=== PATIENT | female | born 1970 | race Caucasian/White ===

== ENCOUNTER 2022-09-28 13:41 | Outpatient (CLI) | payer OTHER, SELFPAY ==
--- NOTE | 2022-09-28 13:40 | CRLHL7_ITS ---
For Patients: As a result of the Cures Act, medical imaging exams and procedure reports are released immediately into your electronic medical record. You may view this report before your referring provider. If you have questions, please contact your health care provider. BILATERAL SCREENING MAMMOGRAM WITH COMPUTER-AIDED DETECTION AND TOMOSYNTHESIS TECHNIQUE: CC and MLO views were obtained. These mammographic images have been obtained using full-field digital technique. These mammographic images were interpreted with the benefit of computer-aided detection. Breast Tomosynthesis was used in this interpretation. COMPARISON FILM: 09/18/21, 05/19/20, 04/03/18. FINDINGS: There are scattered areas of fibroglandular density IMPRESSION: There is no radiographic evidence for malignancy. ASSESSMENT: BI-RADS Category 1: Negative RECOMMENDATION: Routine screening mammogram in 1 year. A lay language report of this examination will be provided to the patient. Alejo Hilliard M.D. Diagnostic Radiologist [email or web address] EHSAN/[email or web address] / be/Dictated by: Alejo Hilliard MD @ 10/01/2022 8:29:00 AM (Electronically Signed)
== END 2022-09-28 13:42 | disposition home or self-care (01) ==
PROVIDERS: PCP Family Medicine; Visit Provider Obstetrics & Gynecology
DX: Z12.31 Encounter for screening mammogram for malignant neoplasm of breast (principal)
CPT/HCPCS: 77063; 77067

== ENCOUNTER 2023-06-27 11:04 | Outpatient (CLI) | payer OTHER, SELFPAY ==
--- NOTE | 2023-06-27 11:00 | XR_ITS ---
Patient: BRAN BOOKER Facility:?[facility] Patient ID:?[id number] Site Patient ID:?[id number]. Site :?[id number] Study:?DEXA-Bone Density-06/27/2023 11:47:53 AM Ordering Physician:ALAN LOPEZ Final Report: DXA BONE MINERAL DENSITY STUDY Reason for exam: Osteoporosis. Current height (in): 63. Weight (lb): 157. Menopause age: 46. Ethnicity: . 1. Have you had a previous hip or vertebral fracture? No. 2. Have you had any fractures during your adult life which did not result from significant trauma (e.g., auto accident)? No. 3. Did either of your parents have a hip fracture? No. 4. Do you smoke? No. 5. Have you ever taken Glucocorticoids? No. 6. Do you have rheumatoid arthritis? No. 7. Do you have secondary osteoporosis? No. 8. Do you drink 3 or more alcoholic drinks per day? No. 9. Are you being treated for osteoporosis? No. 10. Have you ever taken any of the following medications: Actonel, Evista, Fosamax, Miacalcin, Reclast, Boniva, Forteo, HRT (i.e. estrogen/hormone therapy), Protelos, Prolia, Vitamin D, Calcium, other ? please specify. ANSWER: Yes, Vitamin D and Calcium. 11. Do you have any of the following medical conditions: Anorexia or bulimia, asthma or emphysema, end stage renal disease, hyperparathyroidism, any seizure disorders, cancer, inflammatory bowel diseases, hysterectomy, other ? please specify. ANSWER: No. 12. What was your maximum height (inches)? 63. 13. Do you perform weight bearing exercise regularly? Yes. 14. Do you regularly consume dairy products? Yes. 15. Do you drink caffeinated beverages? No. 16. At what age did your period start? 11. 17. Are you premenopausal? No. 18. How many full term pregnancies have you had? 2. 19. Have you ever missed your period for more than 6 months in a row (not including or menopause)? No. TECHNIQUE: Bone mineral density study was performed using the [employer]. FINDINGS: The results of the study expressed as bone mineral density (BMD) are as follows: Lumbar spine L1 to L4: BMD: 0.668 g/cm2. T-score: -3.4. Z-score: -2.4. Neck Left: BMD: 0.549 g/cm2. T-score: -2.7. Z-score: -1.7. Right: BMD: 0.579 g/cm2. T-score: -2.4. Z-score: -1.4. Total Left: BMD: 0.692 g/cm2. T-score: -2.1. Z-score: -1.2. Right: BMD: 0.684 g/cm2. T-score: -2.1. Z-score: -1.3. IMPRESSION: Osteoporosis. *Comparison exams done prior to 08/2019 were performed on different unit, [employer]. COMPARISON: Compared with scan of 0.668, the bone mineral density has decreased by 3.3 percent at the spine and decreased by 6.1 percent at the hip. Dominic Urena M.D. Body/Interventional Radiologist [email or web address] SI/sp D& Transcribed: 7:05 p.m. SP/Dictated by: Dominic Urena MD @ 06/28/2023 12:48:00 PM Signed by:?Dominic Urena MD @07/01/2023 7:17:31 AM (Electronic Signature)
== END 2023-06-27 11:05 | disposition home or self-care (01) ==
LOC: RAD 11:05
PROVIDERS: PCP Family Medicine; Visit Provider Family Medicine
DX: M81.0 Age-related osteoporosis without current pathological fracture (principal)
CPT/HCPCS: 77080

== ENCOUNTER 2024-02-07 13:12 | Outpatient (CLI) | payer OTHER, SELFPAY ==
--- NOTE | 2024-02-07 13:20 | CRLHL7_ITS ---
For Patients: As a result of the Cures Act, medical imaging exams and procedure reports are released immediately into your electronic medical record. You may view this report before your referring provider. If you have questions, please contact your health care provider. BILATERAL SCREENING MAMMOGRAM WITH COMPUTER-AIDED DETECTION AND TOMOSYNTHESIS TECHNIQUE: CC and MLO views were obtained. These mammographic images have been obtained using full-field digital technique. These mammographic images were interpreted with the benefit of computer-aided detection. Breast tomosynthesis was used in this interpretation. COMPARISON FILM: 09/28/22, 09/18/21, 05/19/20. FINDINGS: The breasts are almost entirely fatty. IMPRESSION: There is no radiographic evidence for malignancy. ASSESSMENT: BI-RADS Category 1: Negative RECOMMENDATION: Routine screening mammogram in 1 year. A lay language report of this examination will be provided to the patient. ALEJO ALCALA M.D. Diagnostic Radiologist [email or web address] EHSAN/reji Transcribed: 02/13/2024, 3:[address]/Dictated by: Alejo Alcala MD @ 02/13/2024 12:13:00 PM (Electronically Signed)
== END 2024-02-07 13:13 | disposition home or self-care (01) ==
LOC: MAMMO 13:13
PROVIDERS: PCP Family Medicine; Visit Provider Obstetrics & Gynecology
DX: Z12.31 Encounter for screening mammogram for malignant neoplasm of breast (principal)
CPT/HCPCS: 77063; 77067

== ENCOUNTER 2024-12-22 09:22 | Outpatient (CLI) | payer BC, SELFPAY | END 2024-12-22 09:23 | disposition home or self-care (01) | LOC: NFLDREF 09:23 | PROVIDERS: PCP Family Medicine; Visit Provider Obstetrics & Gynecology | DX: Z13.6 Encounter for screening for cardiovascular disorders (principal); Z13.1 Encounter for screening for diabetes mellitus | CPT/HCPCS: 80061; 82947 ==

== ENCOUNTER 2025-03-30 15:59 | Outpatient (CLI) | payer BC, SELFPAY ==
--- NOTE | 2025-03-30 16:00 | CRLHL7_ITS ---
For Patients: As a result of the Century Cures Act, medical imaging exams and procedure reports are released immediately into your electronic medical record. You may view this report before your referring provider. If you have questions, please contact your health care provider. COMPARISON: 02/07/2024, 09/28/2022, 09/18/2021 TECHNIQUE: Digital mammogram in CC and MLO projections including computer-aided detection (CAD) and tomosynthesis. BREAST COMPOSITION: The breasts are almost entirely fatty. FINDINGS: No suspicious findings. ASSESSMENT: BI-RADS 1 Negative RECOMMENDATION: Annual screening mammogram. A lay language report of this examination will be provided to the patient. Dictated by: Alejo Hilliard MD @ 03/31/2025 09:48:35 (Electronically Signed)
== END 2025-03-30 16:00 | disposition home or self-care (01) ==
LOC: MAMMO 16:00
PROVIDERS: PCP Family Medicine; Visit Provider Family Medicine
DX: Z12.31 Encounter for screening mammogram for malignant neoplasm of breast (principal)
CPT/HCPCS: 77063; 77067